=== PATIENT | male | born 1990 | race Two or more races ===

== ENCOUNTER 2021-01-15 01:38 | Inpatient (IN) | payer BC ==
[2021-01-15] MEDS ORDERED: Albuterol Sulfate 2.5 mg/3 ml Neb NEB PRN (02:49)
[2021-01-15] MEDS ORDERED: hydrALAZINE 20 MG/ML VIAL SLOW IVP PRN (02:49)
[2021-01-15 04:47] LABS: ALT (SGPT) 40 U/L (8-55); AST (SGOT) 47 U/L (5-34); Albumin 3.4 g/dL (3.5-5.0); Alkaline Phosphatase 52 U/L (40-110); Anion Gap 17 mmol/L (10-20); BUN (Urea Nitrogen) 8 mg/dL (8.9-20.6); Bilirubin, Total 0.3 mg/dL (0.2-1.2); Calc. Creatinine Clearance 289 mL/min (70-130); Calcium 8.3 mg/dL (7.8-10.44); Carbon Dioxide 16 mmol/L (22-29); Chloride 106 mmol/L (98-107); Globulin 3.8 g/dL (2.4-3.5); Glucose 150 mg/dL (70-105); Potassium 3.8 mmol/L (3.5-5.1); Protein, Total 7.2 g/dL (6.0-8.3); Sodium 135 mmol/L (136-145)
[2021-01-15 05:21] LABS: #Lymphocytes 0.5 thou/uL (1.20-3.40); #Monocytes 0.2 thou/uL (0.11-0.59); #Neutrophils 4.1 thou/uL (1.40-6.50); %Basophils 0.2 % (0.0-1.0); %Eosinophils 0.1 % (0.0-10.0); %Lymphocytes 10.4 % (21.0-51.0); %Monocytes 4.8 % (0.0-10.0); %Neutrophils 84.6 % (42.0-75.0); Hemoglobin 13.8 g/dL (14.0-18.0); Mean Corpuscular HGB CONC 32.6 g/dL (32.0-36.0); Mean Corpuscular Hemoglobin 29.3 pg (27.0-31.0); Mean Corpuscular Volume 89.8 fL (78.0-98.0); Mean Platelet Volume 8.9 fL (7.4-10.4); Platelet Count 107 thou/uL (130-400); Platelet Morphology Comment Appears Decreased; RBC Distribution Width 12.9 % (11.5-14.5); Red Blood Cell (RBC) Count 4.72 mill/uL (4.70-6.10); White Blood Cell (WBC) Count 4.8 thou/uL (4.8-10.8)
[2021-01-15] MEDS: Benzonatate 100 MG CAP PO PRN ×2 (06:16→16:39)
[2021-01-15] MEDS: Acetaminophen 325 MG TAB PO PRN ×3 (06:16→19:55)
[2021-01-15] MEDS: Albuterol 200 PUFF (6.7GM INHALER) INH PRN ×2 (06:19→16:55)
[2021-01-15] MEDS: Cholecalciferol 1,000 UNITS (25 MCG) TAB PO SCH (08:29)
[2021-01-15] MEDS: Famotidine 20 MG TAB PO SCH ×2 (08:29→19:55)
[2021-01-15] MEDS: Zinc Sulfate 220 MG CAP PO SCH (08:29)
[2021-01-15] MEDS: Ascorbic Acid 500 mg Chewable Tablet PO SCH (08:29)
[2021-01-15] MEDS: Enoxaparin Sodium 40 MG/0.4 ML SYRINGE SC SCH ×2 (08:29→19:54)
[2021-01-15] MEDS ORDERED: Dexamethasone 10 MG/ML VIAL SLOW IVP SCH (09:00)
[2021-01-15] MEDS ORDERED: REMDESIVIR 200 MG in Sodium Chloride 0.9% 250 ML 210 ML IV SCH (10:00)
[2021-01-15] MEDS: Dexamethasone 4 mg/ml Vial SLOW IVP SCH (10:04)
[2021-01-15] MEDS: Ondansetron PF 4 MG/2 ML Vial IVP PRN (16:42)
[2021-01-16 07:25] LABS: #Lymphocytes 0.8 thou/uL (1.20-3.40); #Monocytes 0.6 thou/uL (0.11-0.59); #Neutrophils 6.3 thou/uL (1.40-6.50); %Basophils 0.2 % (0.0-1.0); %Lymphocytes 10.6 % (21.0-51.0); %Monocytes 7.3 % (0.0-10.0); %Neutrophils 81.9 % (42.0-75.0); Hemoglobin 14.4 g/dL (14.0-18.0); Mean Corpuscular HGB CONC 31.4 g/dL (32.0-36.0); Mean Corpuscular Hemoglobin 28.1 pg (27.0-31.0); Mean Corpuscular Volume 89.4 fL (78.0-98.0); Mean Platelet Volume 8.5 fL (7.4-10.4); Platelet Count 144 thou/uL (130-400); RBC Distribution Width 13.1 % (11.5-14.5); Red Blood Cell (RBC) Count 5.12 mill/uL (4.70-6.10); White Blood Cell (WBC) Count 7.7 thou/uL (4.8-10.8)
[2021-01-16 07:31] LABS: ALT (SGPT) 38 U/L (8-55); AST (SGOT) 42 U/L (5-34); Albumin 3.4 g/dL (3.5-5.0); Alkaline Phosphatase 52 U/L (40-110); Anion Gap 14 mmol/L (10-20); BUN (Urea Nitrogen) 8 mg/dL (8.9-20.6); Bilirubin, Total 0.4 mg/dL (0.2-1.2); Calc. Creatinine Clearance 299 mL/min (70-130); Calcium 8.6 mg/dL (7.8-10.44); Carbon Dioxide 24 mmol/L (22-29); Chloride 105 mmol/L (98-107); Globulin 3.6 g/dL (2.4-3.5); Glucose 174 mg/dL (70-105); Potassium 3.8 mmol/L (3.5-5.1); Sodium 139 mmol/L (136-145)
[2021-01-16] MEDS: Famotidine 20 MG TAB PO SCH ×2 (08:11→20:49)
[2021-01-16] MEDS: Zinc Sulfate 220 MG CAP PO SCH (08:11)
[2021-01-16] MEDS: Cholecalciferol 1,000 UNITS (25 MCG) TAB PO SCH (08:11)
[2021-01-16] MEDS: Ascorbic Acid 500 mg Chewable Tablet PO SCH (08:11)
[2021-01-16] MEDS: Dexamethasone 4 mg/ml Vial SLOW IVP SCH (08:12)
[2021-01-16] MEDS: Enoxaparin Sodium 40 MG/0.4 ML SYRINGE SC SCH ×2 (08:12→20:49)
[2021-01-16] MEDS: REMDESIVIR 100 MG in Sodium Chloride 0.9% 250 ML 230 ML IV SCH (08:13)
[2021-01-16] MEDS: Albuterol 200 PUFF (6.7GM INHALER) INH PRN ×2 (08:25→12:00)
[2021-01-16] MEDS: Benzonatate 100 MG CAP PO PRN ×2 (11:12→20:49)
[2021-01-16] MEDS: Acetaminophen 325 MG TAB PO PRN ×2 (11:15→20:58)
[2021-01-17] MEDS: Ondansetron PF 4 MG/2 ML Vial IVP PRN (03:17)
[2021-01-17] MEDS ORDERED: Metoclopramide HCl 10 MG/2 ML VIAL IVP PRN (04:16)
[2021-01-17 07:05] LABS: #Basophils 0.1 thou/uL (0.0-0.2); #Lymphocytes 0.8 thou/uL (1.20-3.40); #Monocytes 0.9 thou/uL (0.11-0.59); #Neutrophils 7.8 thou/uL (1.40-6.50); %Basophils 1.3 % (0.0-1.0); %Eosinophils 0.1 % (0.0-10.0); %Lymphocytes 8.3 % (21.0-51.0); %Monocytes 9.2 % (0.0-10.0); Hemoglobin 16.4 g/dL (14.0-18.0); Mean Corpuscular HGB CONC 32.5 g/dL (32.0-36.0); Mean Corpuscular Hemoglobin 29.3 pg (27.0-31.0); Mean Corpuscular Volume 90.2 fL (78.0-98.0); Mean Platelet Volume 8.6 fL (7.4-10.4); Platelet Count 182 thou/uL (130-400); RBC Distribution Width 13.1 % (11.5-14.5); Red Blood Cell (RBC) Count 5.58 mill/uL (4.70-6.10); White Blood Cell (WBC) Count 9.7 thou/uL (4.8-10.8)
[2021-01-17] MEDS ORDERED: ALPRAZolam 0.5 MG TAB PO PRN (09:26)
[2021-01-17] MEDS: REMDESIVIR 100 MG in Sodium Chloride 0.9% 250 ML 230 ML IV SCH (09:47)
[2021-01-17] MEDS: Ascorbic Acid 500 mg Chewable Tablet PO SCH (09:48)
[2021-01-17] MEDS: Cholecalciferol 1,000 UNITS (25 MCG) TAB PO SCH (09:48)
[2021-01-17] MEDS: Enoxaparin Sodium 40 MG/0.4 ML SYRINGE SC SCH ×2 (09:48→20:20)
[2021-01-17] MEDS: Dexamethasone 4 mg/ml Vial SLOW IVP SCH (09:49)
[2021-01-17] MEDS: Zinc Sulfate 220 MG CAP PO SCH (09:49)
[2021-01-17] MEDS: Famotidine 20 MG TAB PO SCH ×2 (09:49→20:20)
[2021-01-17] MEDS: Benzonatate 100 MG CAP PO PRN ×2 (09:52→14:44)
[2021-01-17] MEDS: Acetaminophen 325 MG TAB PO PRN (09:52)
[2021-01-17 10:03] LABS: ALT (SGPT) 55 U/L (8-55); AST (SGOT) 61 U/L (5-34); Albumin 3.8 g/dL (3.5-5.0); Alkaline Phosphatase 61 U/L (40-110); Anion Gap 14 mmol/L (10-20); BUN (Urea Nitrogen) 13 mg/dL (8.9-20.6); Bilirubin, Total 0.9 mg/dL (0.2-1.2); Calc. Creatinine Clearance 263 mL/min (70-130); Carbon Dioxide 25 mmol/L (22-29); Chloride 104 mmol/L (98-107); Glucose 195 mg/dL (70-105); Potassium 3.7 mmol/L (3.5-5.1); Protein, Total 7.8 g/dL (6.0-8.3); Sodium 139 mmol/L (136-145)
[2021-01-17] MEDS: Albuterol 200 PUFF (6.7GM INHALER) INH PRN ×2 (14:44→17:54)
[2021-01-17] MEDS ORDERED: guaiFENesin/Codeine 200 mg/20 mg 10 ml Cup PO SCH (17:34)
[2021-01-17] MEDS ORDERED: Loratadine 10 MG TAB PO SCH (17:35)
[2021-01-17] MEDS: Benzonatate 100 MG CAP PO SCH (20:19)
[2021-01-17] MEDS ORDERED: guaiFENesin/Codeine 200 mg/20 mg 10 ml Cup PO PRN (21:34)
[2021-01-17] MEDS: Fluticasone Propionate Nasal Spray 16 gm Bottle NASAL SCH (21:45)
[2021-01-17] MEDS: hydrALAZINE 20 MG/ML VIAL SLOW IVP PRN (22:25)
[2021-01-18 04:33] LABS: ALT (SGPT) 90 U/L (8-55); AST (SGOT) 90 U/L (5-34); Albumin 3.4 g/dL (3.5-5.0); Alkaline Phosphatase 60 U/L (40-110); Anion Gap 11 mmol/L (10-20); BUN (Urea Nitrogen) 15 mg/dL (8.9-20.6); Bilirubin, Total 0.9 mg/dL (0.2-1.2); CRP (Inflammatory) 3.14 mg/dL (= or < 0.5); Calc. Creatinine Clearance 271 mL/min (70-130); Calcium 8.7 mg/dL (7.8-10.44); Carbon Dioxide 29 mmol/L (22-29); Chloride 103 mmol/L (98-107); Glucose 191 mg/dL (70-105); Potassium 3.5 mmol/L (3.5-5.1); Protein, Total 7.4 g/dL (6.0-8.3); Sodium 139 mmol/L (136-145)
[2021-01-18] MEDS: Ascorbic Acid 500 mg Chewable Tablet PO SCH (08:20)
[2021-01-18] MEDS: Benzonatate 100 MG CAP PO SCH ×3 (08:20→19:56)
[2021-01-18] MEDS: Enoxaparin Sodium 40 MG/0.4 ML SYRINGE SC SCH ×2 (08:21→19:54)
[2021-01-18] MEDS: Famotidine 20 MG TAB PO SCH ×2 (08:21→19:56)
[2021-01-18] MEDS: Zinc Sulfate 220 MG CAP PO SCH (08:21)
[2021-01-18] MEDS: Dexamethasone 4 mg/ml Vial SLOW IVP SCH ×2 (08:21→19:56)
[2021-01-18] MEDS: Fluticasone Propionate Nasal Spray 16 gm Bottle NASAL SCH ×2 (08:21→21:07)
[2021-01-18] MEDS: Cholecalciferol 1,000 UNITS (25 MCG) TAB PO SCH (08:21)
[2021-01-18] MEDS: REMDESIVIR 100 MG in Sodium Chloride 0.9% 250 ML 230 ML IV SCH (08:47)
[2021-01-18] MEDS: Mometasone 200 MCG/Formoterol 5 MCG 120 PUFF INHALER INH SCH (18:23)
[2021-01-18] MEDS: hydrALAZINE 20 MG/ML VIAL SLOW IVP PRN (19:54)
[2021-01-18] MEDS: ALPRAZolam 0.25 MG TAB PO PRN (19:55)
[2021-01-18] MEDS: Ondansetron PF 4 MG/2 ML Vial IVP PRN (21:07)
[2021-01-19 04:34] LABS: ALT (SGPT) 119 U/L (8-55); AST (SGOT) 80 U/L (5-34); Albumin 3.4 g/dL (3.5-5.0); Alkaline Phosphatase 57 U/L (40-110); Anion Gap 15 mmol/L (10-20); BUN (Urea Nitrogen) 13 mg/dL (8.9-20.6); Bilirubin, Total 1.2 mg/dL (0.2-1.2); CRP (Inflammatory) 5.09 mg/dL (= or < 0.5); Calc. Creatinine Clearance 286 mL/min (70-130); Calcium 8.7 mg/dL (7.8-10.44); Carbon Dioxide 25 mmol/L (22-29); Chloride 103 mmol/L (98-107); Globulin 3.7 g/dL (2.4-3.5); Glucose 243 mg/dL (70-105); Potassium 3.8 mmol/L (3.5-5.1); Protein, Total 7.1 g/dL (6.0-8.3); Sodium 139 mmol/L (136-145)
[2021-01-19] MEDS: REMDESIVIR 100 MG in Sodium Chloride 0.9% 250 ML 230 ML IV SCH (07:29)
[2021-01-19] MEDS: Mometasone 200 MCG/Formoterol 5 MCG 120 PUFF INHALER INH SCH ×2 (07:30→22:39)
[2021-01-19] MEDS: Famotidine 20 MG TAB PO SCH ×2 (07:56→20:26)
[2021-01-19] MEDS: Ascorbic Acid 500 mg Chewable Tablet PO SCH (07:56)
[2021-01-19] MEDS: Benzonatate 100 MG CAP PO SCH ×3 (07:56→20:26)
[2021-01-19] MEDS: Zinc Sulfate 220 MG CAP PO SCH (07:56)
[2021-01-19] MEDS: Dexamethasone 4 mg/ml Vial SLOW IVP SCH ×2 (07:56→20:27)
[2021-01-19] MEDS: Fluticasone Propionate Nasal Spray 16 gm Bottle NASAL SCH ×2 (07:57→20:30)
[2021-01-19] MEDS: Cholecalciferol 1,000 UNITS (25 MCG) TAB PO SCH (07:57)
[2021-01-19] MEDS: Enoxaparin Sodium 40 MG/0.4 ML SYRINGE SC SCH ×2 (07:57→20:25)
[2021-01-19] MEDS: BARICITINIB 2 MG TAB PO SCH (20:26)
[2021-01-19] MEDS: ALPRAZolam 0.25 MG TAB PO PRN (20:27)
[2021-01-19] MEDS: hydrALAZINE 20 MG/ML VIAL SLOW IVP PRN (22:44)
[2021-01-20 04:27] LABS: ALT (SGPT) 150 U/L (8-55); AST (SGOT) 71 U/L (5-34); Albumin 3.3 g/dL (3.5-5.0); Alkaline Phosphatase 56 U/L (40-110); Anion Gap 12 mmol/L (10-20); BUN (Urea Nitrogen) 18 mg/dL (8.9-20.6); Bilirubin, Total 0.9 mg/dL (0.2-1.2); CRP (Inflammatory) 3.76 mg/dL (= or < 0.5); Calc. Creatinine Clearance 265 mL/min (70-130); Calcium 8.8 mg/dL (7.8-10.44); Carbon Dioxide 27 mmol/L (22-29); Chloride 103 mmol/L (98-107); Globulin 3.8 g/dL (2.4-3.5); Glucose 255 mg/dL (70-105); Protein, Total 7.1 g/dL (6.0-8.3); Sodium 138 mmol/L (136-145)
[2021-01-20] MEDS: Dexamethasone 4 mg/ml Vial SLOW IVP SCH ×2 (09:07→21:15)
[2021-01-20] MEDS: Zinc Sulfate 220 MG CAP PO SCH (09:09)
[2021-01-20] MEDS: Benzonatate 100 MG CAP PO SCH ×3 (09:09→21:14)
[2021-01-20] MEDS: Famotidine 20 MG TAB PO SCH ×2 (09:09→21:14)
[2021-01-20] MEDS: Ascorbic Acid 500 mg Chewable Tablet PO SCH (09:09)
[2021-01-20] MEDS: Cholecalciferol 1,000 UNITS (25 MCG) TAB PO SCH (09:10)
[2021-01-20] MEDS: Enoxaparin Sodium 40 MG/0.4 ML SYRINGE SC SCH ×2 (09:10→21:14)
[2021-01-20] MEDS: Mometasone 200 MCG/Formoterol 5 MCG 120 PUFF INHALER INH SCH ×2 (09:15→23:16)
[2021-01-20] MEDS: Fluticasone Propionate Nasal Spray 16 gm Bottle NASAL SCH ×2 (09:15→21:22)
[2021-01-20] MEDS: BARICITINIB 2 MG TAB PO SCH (21:14)
[2021-01-21 04:18] LABS: ALT (SGPT) 143 U/L (8-55); AST (SGOT) 57 U/L (5-34); Alkaline Phosphatase 53 U/L (40-110); Anion Gap 11 mmol/L (10-20); BUN (Urea Nitrogen) 20 mg/dL (8.9-20.6); Bilirubin, Total 0.9 mg/dL (0.2-1.2); CRP (Inflammatory) 1.79 mg/dL (= or < 0.5); Calc. Creatinine Clearance 274 mL/min (70-130); Calcium 8.5 mg/dL (7.8-10.44); Carbon Dioxide 27 mmol/L (22-29); Chloride 103 mmol/L (98-107); Glucose 251 mg/dL (70-105); Potassium 4.4 mmol/L (3.5-5.1); Sodium 137 mmol/L (136-145)
[2021-01-21] MEDS ORDERED: Amlodipine 5 MG TAB PO SCH (09:00)
[2021-01-21] MEDS: Ascorbic Acid 500 mg Chewable Tablet PO SCH (10:15)
[2021-01-21] MEDS: Enoxaparin Sodium 40 MG/0.4 ML SYRINGE SC SCH ×2 (10:15→20:51)
[2021-01-21] MEDS: Dexamethasone 4 mg/ml Vial SLOW IVP SCH ×2 (10:15→20:51)
[2021-01-21] MEDS: Benzonatate 100 MG CAP PO SCH ×3 (10:16→20:51)
[2021-01-21] MEDS: Zinc Sulfate 220 MG CAP PO SCH (10:16)
[2021-01-21] MEDS: Fluticasone Propionate Nasal Spray 16 gm Bottle NASAL SCH ×2 (10:16→20:54)
[2021-01-21] MEDS: Famotidine 20 MG TAB PO SCH ×2 (10:16→20:51)
[2021-01-21] MEDS: Cholecalciferol 1,000 UNITS (25 MCG) TAB PO SCH (10:16)
[2021-01-21] MEDS: Mometasone 200 MCG/Formoterol 5 MCG 120 PUFF INHALER INH SCH ×2 (10:17→20:01)
[2021-01-21] MEDS: BARICITINIB 2 MG TAB PO SCH (20:51)
[2021-01-21] MEDS: Amlodipine 5 MG TAB PO SCH (22:47)
[2021-01-22 04:25] LABS: ALT (SGPT) 152 U/L (8-55); AST (SGOT) 59 U/L (5-34); Albumin 3.2 g/dL (3.5-5.0); Alkaline Phosphatase 52 U/L (40-110); Anion Gap 14 mmol/L (10-20); BUN (Urea Nitrogen) 19 mg/dL (8.9-20.6); Bilirubin, Total 0.9 mg/dL (0.2-1.2); CRP (Inflammatory) 1.07 mg/dL (= or < 0.5); Calc. Creatinine Clearance 267 mL/min (70-130); Calcium 8.8 mg/dL (7.8-10.44); Carbon Dioxide 24 mmol/L (22-29); Chloride 103 mmol/L (98-107); Globulin 4.3 g/dL (2.4-3.5); Glucose 230 mg/dL (70-105); Potassium 4.7 mmol/L (3.5-5.1); Protein, Total 7.5 g/dL (6.0-8.3); Sodium 136 mmol/L (136-145)
[2021-01-22] MEDS: Mometasone 200 MCG/Formoterol 5 MCG 120 PUFF INHALER INH SCH (06:42)
[2021-01-22] MEDS: Dexamethasone 4 mg/ml Vial SLOW IVP SCH ×2 (08:18→22:47)
[2021-01-22] MEDS: Enoxaparin Sodium 40 MG/0.4 ML SYRINGE SC SCH ×2 (08:18→20:38)
[2021-01-22] MEDS: Zinc Sulfate 220 MG CAP PO SCH (08:19)
[2021-01-22] MEDS: Cholecalciferol 1,000 UNITS (25 MCG) TAB PO SCH (08:19)
[2021-01-22] MEDS: Benzonatate 100 MG CAP PO SCH ×3 (08:19→20:35)
[2021-01-22] MEDS: Fluticasone Propionate Nasal Spray 16 gm Bottle NASAL SCH ×2 (08:19→20:38)
[2021-01-22] MEDS: Amlodipine 5 MG TAB PO SCH ×2 (08:19→20:34)
[2021-01-22] MEDS: Famotidine 20 MG TAB PO SCH ×2 (08:19→20:38)
[2021-01-22] MEDS: Ascorbic Acid 500 mg Chewable Tablet PO SCH (08:19)
[2021-01-22] MEDS: BARICITINIB 2 MG TAB PO SCH (20:35)
[2021-01-23] MEDS: Famotidine 20 MG TAB PO SCH ×2 (10:10→20:19)
[2021-01-23] MEDS: Benzonatate 100 MG CAP PO SCH ×3 (10:10→20:19)
[2021-01-23] MEDS: Enoxaparin Sodium 40 MG/0.4 ML SYRINGE SC SCH ×2 (10:10→20:19)
[2021-01-23] MEDS: Zinc Sulfate 220 MG CAP PO SCH (10:10)
[2021-01-23] MEDS: Dexamethasone 4 mg/ml Vial SLOW IVP SCH ×2 (10:11→20:17)
[2021-01-23] MEDS: Amlodipine 5 MG TAB PO SCH ×2 (10:11→20:18)
[2021-01-23] MEDS: Ascorbic Acid 500 mg Chewable Tablet PO SCH (10:11)
[2021-01-23] MEDS: Cholecalciferol 1,000 UNITS (25 MCG) TAB PO SCH (10:12)
[2021-01-23] MEDS: Acetaminophen 325 MG TAB PO PRN (10:35)
[2021-01-23] MEDS: Fluticasone Propionate Nasal Spray 16 gm Bottle NASAL SCH ×2 (10:35→20:33)
[2021-01-23] MEDS: Mometasone 200 MCG/Formoterol 5 MCG 120 PUFF INHALER INH SCH ×3 (11:37→18:10)
[2021-01-23] MEDS: BARICITINIB 2 MG TAB PO SCH (20:18)
[2021-01-24 06:16] VITALS: BMI 55.4
[2021-01-24 07:10] LABS: ALT (SGPT) 198 U/L (8-55); AST (SGOT) 50 U/L (5-34); Albumin 3.5 g/dL (3.5-5.0); Alkaline Phosphatase 53 U/L (40-110); Anion Gap 11 mmol/L (10-20); BUN (Urea Nitrogen) 21 mg/dL (8.9-20.6); CRP (Inflammatory) Less than 0.50 mg/dL (= or < 0.5); Calc. Creatinine Clearance 236 mL/min (70-130); Calcium 9.1 mg/dL (7.8-10.44); Carbon Dioxide 28 mmol/L (22-29); Chloride 102 mmol/L (98-107); Globulin 4.1 g/dL (2.4-3.5); Glucose 229 mg/dL (70-105); Potassium 4.5 mmol/L (3.5-5.1); Protein, Total 7.6 g/dL (6.0-8.3); Sodium 136 mmol/L (136-145)
[2021-01-24] MEDS: Mometasone 200 MCG/Formoterol 5 MCG 120 PUFF INHALER INH SCH ×2 (07:57→18:33)
[2021-01-24] MEDS: Ascorbic Acid 500 mg Chewable Tablet PO SCH (08:51)
[2021-01-24] MEDS: Amlodipine 5 MG TAB PO SCH ×2 (08:51→20:42)
[2021-01-24] MEDS: Famotidine 20 MG TAB PO SCH ×2 (08:52→20:42)
[2021-01-24] MEDS: Enoxaparin Sodium 40 MG/0.4 ML SYRINGE SC SCH ×2 (08:52→20:42)
[2021-01-24] MEDS: Zinc Sulfate 220 MG CAP PO SCH (08:52)
[2021-01-24] MEDS: Benzonatate 100 MG CAP PO SCH ×3 (08:52→20:40)
[2021-01-24] MEDS: Dexamethasone 4 mg/ml Vial SLOW IVP SCH ×2 (08:52→20:43)
[2021-01-24] MEDS: Cholecalciferol 1,000 UNITS (25 MCG) TAB PO SCH (08:52)
[2021-01-24] MEDS: Fluticasone Propionate Nasal Spray 16 gm Bottle NASAL SCH ×2 (08:53→20:44)
[2021-01-24 17:57] LABS: Hemoglobin A1c 6.5 % (4.0-6.0)
[2021-01-24] MEDS: BARICITINIB 2 MG TAB PO SCH (20:40)
[2021-01-25] MEDS: Mometasone 200 MCG/Formoterol 5 MCG 120 PUFF INHALER INH SCH ×2 (08:19→19:27)
[2021-01-25] MEDS: Zinc Sulfate 220 MG CAP PO SCH (08:58)
[2021-01-25] MEDS: Dexamethasone 4 mg/ml Vial SLOW IVP SCH ×2 (08:59→21:24)
[2021-01-25] MEDS: Famotidine 20 MG TAB PO SCH ×2 (08:59→21:07)
[2021-01-25] MEDS: Benzonatate 100 MG CAP PO SCH ×3 (08:59→21:07)
[2021-01-25] MEDS: Amlodipine 5 MG TAB PO SCH ×2 (08:59→21:07)
[2021-01-25] MEDS: Ascorbic Acid 500 mg Chewable Tablet PO SCH (08:59)
[2021-01-25] MEDS: Cholecalciferol 1,000 UNITS (25 MCG) TAB PO SCH (08:59)
[2021-01-25] MEDS: Enoxaparin Sodium 40 MG/0.4 ML SYRINGE SC SCH ×2 (09:00→21:11)
[2021-01-25] MEDS: Fluticasone Propionate Nasal Spray 16 gm Bottle NASAL SCH ×2 (09:00→21:24)
[2021-01-25] MEDS: BARICITINIB 2 MG TAB PO SCH (21:06)
[2021-01-26] MEDS: Mometasone 200 MCG/Formoterol 5 MCG 120 PUFF INHALER INH SCH ×2 (07:26→19:23)
[2021-01-26] MEDS: Benzonatate 100 MG CAP PO SCH ×3 (09:41→21:28)
[2021-01-26] MEDS: Zinc Sulfate 220 MG CAP PO SCH (09:41)
[2021-01-26] MEDS: Ascorbic Acid 500 mg Chewable Tablet PO SCH (09:41)
[2021-01-26] MEDS: Cholecalciferol 1,000 UNITS (25 MCG) TAB PO SCH (09:41)
[2021-01-26] MEDS: Amlodipine 5 MG TAB PO SCH ×2 (09:41→21:29)
[2021-01-26] MEDS: Famotidine 20 MG TAB PO SCH ×2 (09:41→21:29)
[2021-01-26] MEDS: Dexamethasone 4 mg/ml Vial SLOW IVP SCH ×3 (09:42→21:30)
[2021-01-26] MEDS: Fluticasone Propionate Nasal Spray 16 gm Bottle NASAL SCH ×2 (09:43→21:00)
[2021-01-26] MEDS: Enoxaparin Sodium 40 MG/0.4 ML SYRINGE SC SCH ×2 (09:43→21:31)
[2021-01-26] MEDS: BARICITINIB 2 MG TAB PO SCH (21:29)
[2021-01-27] MEDS: Ascorbic Acid 500 mg Chewable Tablet PO SCH (09:05)
[2021-01-27] MEDS: Famotidine 20 MG TAB PO SCH ×2 (09:06→21:19)
[2021-01-27] MEDS: Cholecalciferol 1,000 UNITS (25 MCG) TAB PO SCH (09:06)
[2021-01-27] MEDS: Benzonatate 100 MG CAP PO SCH ×3 (09:06→21:22)
[2021-01-27] MEDS: Amlodipine 5 MG TAB PO SCH ×2 (09:06→21:19)
[2021-01-27] MEDS: Zinc Sulfate 220 MG CAP PO SCH (09:06)
[2021-01-27] MEDS: Enoxaparin Sodium 40 MG/0.4 ML SYRINGE SC SCH ×2 (09:07→21:21)
[2021-01-27] MEDS: Fluticasone Propionate Nasal Spray 16 gm Bottle NASAL SCH ×2 (09:08→21:22)
[2021-01-27] MEDS: Mometasone 200 MCG/Formoterol 5 MCG 120 PUFF INHALER INH SCH ×2 (11:18→18:57)
[2021-01-27] MEDS: BARICITINIB 2 MG TAB PO SCH (21:19)
[2021-01-27] MEDS: Doxycycline 100 MG CAP PO SCH (21:19)
[2021-01-28] MEDS: Mometasone 200 MCG/Formoterol 5 MCG 120 PUFF INHALER INH SCH ×2 (08:58→19:14)
[2021-01-28] MEDS: Doxycycline 100 MG CAP PO SCH ×2 (09:13→21:18)
[2021-01-28] MEDS: Dexamethasone 4 MG TAB PO SCH (09:13)
[2021-01-28] MEDS: Amlodipine 5 MG TAB PO SCH ×2 (09:13→21:18)
[2021-01-28] MEDS: Cholecalciferol 1,000 UNITS (25 MCG) TAB PO SCH (09:13)
[2021-01-28] MEDS: Zinc Sulfate 220 MG CAP PO SCH (09:13)
[2021-01-28] MEDS: Fluticasone Propionate Nasal Spray 16 gm Bottle NASAL SCH ×2 (09:14→21:27)
[2021-01-28] MEDS: Famotidine 20 MG TAB PO SCH ×2 (09:14→21:18)
[2021-01-28] MEDS: Enoxaparin Sodium 40 MG/0.4 ML SYRINGE SC SCH ×2 (09:14→21:19)
[2021-01-28] MEDS: Benzonatate 100 MG CAP PO SCH ×3 (09:14→21:18)
[2021-01-28] MEDS: Ascorbic Acid 500 mg Chewable Tablet PO SCH (09:14)
[2021-01-28 12:48] LABS: ALT (SGPT) 186 U/L (8-55); AST (SGOT) 57 U/L (5-34); Albumin 3.1 g/dL (3.5-5.0); Alkaline Phosphatase 49 U/L (40-110); Bilirubin, Direct 0.3 mg/dL (0.1-0.3); Protein, Total 6.4 g/dL (6.0-8.3)
[2021-01-28 19:03] LABS: #Lymphocytes 0.7 thou/uL (1.20-3.40); #Monocytes 0.3 thou/uL (0.11-0.59); #Neutrophils 9.4 thou/uL (1.40-6.50); %Eosinophils 0.4 % (0.0-10.0); %Lymphocytes 6.5 % (21.0-51.0); %Monocytes 3.1 % (0.0-10.0); Hemoglobin 17.8 g/dL (14.0-18.0); Mean Corpuscular HGB CONC 31.7 g/dL (32.0-36.0); Mean Corpuscular Hemoglobin 28.9 pg (27.0-31.0); Mean Corpuscular Volume 91.4 fL (78.0-98.0); Mean Platelet Volume 8.9 fL (7.4-10.4); Platelet Count 246 thou/uL (130-400); RBC Distribution Width 14.1 % (11.5-14.5); Red Blood Cell (RBC) Count 6.16 mill/uL (4.70-6.10); White Blood Cell (WBC) Count 10.4 thou/uL (4.8-10.8)
[2021-01-28 19:25] LABS: Anion Gap 15 mmol/L (10-20); BUN (Urea Nitrogen) 23 mg/dL (8.9-20.6); Calc. Creatinine Clearance 227 mL/min (70-130); Calcium 8.4 mg/dL (7.8-10.44); Carbon Dioxide 23 mmol/L (22-29); Chloride 104 mmol/L (98-107); Glucose 264 mg/dL (70-105); Magnesium 2.4 mg/dL (1.6-2.6); Potassium 4.5 mmol/L (3.5-5.1); Sodium 137 mmol/L (136-145)
[2021-01-28] MEDS: BARICITINIB 2 MG TAB PO SCH (21:18)
[2021-01-29] MEDS: Mometasone 200 MCG/Formoterol 5 MCG 120 PUFF INHALER INH SCH ×2 (05:34→21:30)
[2021-01-29] MEDS: Zinc Sulfate 220 MG CAP PO SCH (08:22)
[2021-01-29] MEDS: Dexamethasone 4 MG TAB PO SCH (08:22)
[2021-01-29] MEDS: Doxycycline 100 MG CAP PO SCH ×2 (08:22→21:30)
[2021-01-29] MEDS: Ascorbic Acid 500 mg Chewable Tablet PO SCH (08:23)
[2021-01-29] MEDS: Enoxaparin Sodium 40 MG/0.4 ML SYRINGE SC SCH ×2 (08:23→21:29)
[2021-01-29] MEDS: Famotidine 20 MG TAB PO SCH ×2 (08:23→21:29)
[2021-01-29] MEDS: Cholecalciferol 1,000 UNITS (25 MCG) TAB PO SCH (08:23)
[2021-01-29] MEDS: Amlodipine 5 MG TAB PO SCH ×2 (08:23→21:29)
[2021-01-29] MEDS: Benzonatate 100 MG CAP PO SCH ×3 (08:23→21:37)
[2021-01-29] MEDS: Fluticasone Propionate Nasal Spray 16 gm Bottle NASAL SCH ×2 (08:24→21:34)
[2021-01-29] MEDS: BARICITINIB 2 MG TAB PO SCH (21:29)
[2021-01-30] MEDS: Mometasone 200 MCG/Formoterol 5 MCG 120 PUFF INHALER INH SCH ×2 (06:07→18:40)
[2021-01-30] MEDS: Ascorbic Acid 500 mg Chewable Tablet PO SCH (08:42)
[2021-01-30] MEDS: Cholecalciferol 1,000 UNITS (25 MCG) TAB PO SCH (08:42)
[2021-01-30] MEDS: Zinc Sulfate 220 MG CAP PO SCH (08:42)
[2021-01-30] MEDS: Doxycycline 100 MG CAP PO SCH ×2 (08:42→21:16)
[2021-01-30] MEDS: Amlodipine 5 MG TAB PO SCH ×2 (08:43→21:16)
[2021-01-30] MEDS: Famotidine 20 MG TAB PO SCH ×2 (08:43→21:17)
[2021-01-30] MEDS: Fluticasone Propionate Nasal Spray 16 gm Bottle NASAL SCH ×2 (08:43→21:19)
[2021-01-30] MEDS: Dexamethasone 4 MG TAB PO SCH (08:43)
[2021-01-30] MEDS: Enoxaparin Sodium 40 MG/0.4 ML SYRINGE SC SCH ×2 (08:45→21:17)
[2021-01-30] MEDS: Benzonatate 100 MG CAP PO SCH ×3 (08:45→21:21)
[2021-01-30] MEDS: BARICITINIB 2 MG TAB PO SCH (21:16)
[2021-01-31] MEDS: Mometasone 200 MCG/Formoterol 5 MCG 120 PUFF INHALER INH SCH ×2 (05:49→17:09)
[2021-01-31 08:19] LABS: #Basophils 0.1 thou/uL (0.0-0.2); #Eosinphils 0.1 thou/uL (0.0-0.7); #Lymphocytes 2.6 thou/uL (1.20-3.40); #Monocytes 0.7 thou/uL (0.11-0.59); #Neutrophils 4.8 thou/uL (1.40-6.50); %Basophils 0.8 % (0.0-1.0); %Lymphocytes 31.4 % (21.0-51.0); %Neutrophils 57.8 % (42.0-75.0); Hemoglobin 16.3 g/dL (14.0-18.0); Mean Corpuscular HGB CONC 30.7 g/dL (32.0-36.0); Mean Corpuscular Hemoglobin 28.1 pg (27.0-31.0); Mean Corpuscular Volume 91.5 fL (78.0-98.0); Mean Platelet Volume 8.5 fL (7.4-10.4); Platelet Count 238 thou/uL (130-400); RBC Distribution Width 14.1 % (11.5-14.5); Red Blood Cell (RBC) Count 5.78 mill/uL (4.70-6.10); White Blood Cell (WBC) Count 8.3 thou/uL (4.8-10.8)
[2021-01-31 08:42] LABS: ALT (SGPT) 192 U/L (8-55); AST (SGOT) 48 U/L (5-34); Albumin 3.3 g/dL (3.5-5.0); Alkaline Phosphatase 50 U/L (40-110); Anion Gap 14 mmol/L (10-20); BUN (Urea Nitrogen) 21 mg/dL (8.9-20.6); Bilirubin, Total 1.2 mg/dL (0.2-1.2); Calc. Creatinine Clearance 291 mL/min (70-130); Calcium 8.7 mg/dL (7.8-10.44); Carbon Dioxide 25 mmol/L (22-29); Chloride 106 mmol/L (98-107); Globulin 2.9 g/dL (2.4-3.5); Glucose 93 mg/dL (70-105); Potassium 4.5 mmol/L (3.5-5.1); Protein, Total 6.2 g/dL (6.0-8.3); Sodium 140 mmol/L (136-145)
[2021-01-31] MEDS: Doxycycline 100 MG CAP PO SCH ×2 (08:58→21:27)
[2021-01-31] MEDS: Dexamethasone 4 MG TAB PO SCH (08:59)
[2021-01-31] MEDS: Ascorbic Acid 500 mg Chewable Tablet PO SCH (08:59)
[2021-01-31] MEDS: Amlodipine 5 MG TAB PO SCH ×2 (08:59→21:26)
[2021-01-31] MEDS: Famotidine 20 MG TAB PO SCH ×2 (08:59→21:27)
[2021-01-31] MEDS: Cholecalciferol 1,000 UNITS (25 MCG) TAB PO SCH (08:59)
[2021-01-31] MEDS: Zinc Sulfate 220 MG CAP PO SCH (08:59)
[2021-01-31] MEDS: Benzonatate 100 MG CAP PO SCH ×3 (10:56→21:28)
[2021-01-31] MEDS: Enoxaparin Sodium 60 MG/0.6 ML SYRINGE SC SCH ×3 (10:57→23:29)
[2021-01-31] MEDS: Fluticasone Propionate Nasal Spray 16 gm Bottle NASAL SCH ×2 (10:58→21:27)
[2021-01-31] MEDS: Colchicine 0.6 MG TAB PO SCH (21:26)
[2021-01-31] MEDS: BARICITINIB 2 MG TAB PO SCH (21:27)
[2021-01-31 21:31] VITALS: TEMP 97.6
[2021-01-31] MEDS: Enoxaparin Sodium 40 MG/0.4 ML SYRINGE SC SCH (23:28)
[2021-02-01] MEDS: Mometasone 200 MCG/Formoterol 5 MCG 120 PUFF INHALER INH SCH (05:10)
[2021-02-01] MEDS: Ascorbic Acid 500 mg Chewable Tablet PO SCH (08:31)
[2021-02-01] MEDS: Doxycycline 100 MG CAP PO SCH (08:31)
[2021-02-01] MEDS: Dexamethasone 4 MG TAB PO SCH (08:31)
[2021-02-01] MEDS: Colchicine 0.6 MG TAB PO SCH (08:32)
[2021-02-01] MEDS: Famotidine 20 MG TAB PO SCH (08:32)
[2021-02-01] MEDS: Cholecalciferol 1,000 UNITS (25 MCG) TAB PO SCH (08:32)
[2021-02-01] MEDS: Amlodipine 5 MG TAB PO SCH (08:32)
[2021-02-01] MEDS: Zinc Sulfate 220 MG CAP PO SCH (08:32)
[2021-02-01] MEDS: Fluticasone Propionate Nasal Spray 16 gm Bottle NASAL SCH (08:32)
[2021-02-01] MEDS: Benzonatate 100 MG CAP PO SCH ×2 (08:32→14:47)
[2021-02-01 08:48] VITALS: BP 141/86
[2021-02-01] MEDS ORDERED: Enoxaparin Sodium 40 MG/0.4 ML SYRINGE SC SCH (09:00)
== END 2021-02-01 15:45 | disposition home or self-care (01) | DRG 177 ==
LOC: T4-B 02:08 → IMCU/EMU 01-17 22:18 → T4-A 01-22 18:36
PROVIDERS: ADMIT Internal Medicine; ATTEND Hospitalist
PROC: 8E0ZXY6 Isolation (ICD-10-PCS; principal; 2021-01-15)
PROC: XW0DXM6 Introduction of Baricitinib into Mouth and Pharynx, External Approach, New Technology Group 6 (ICD-10-PCS; 2021-01-15)
PROC: XW033E5 Introduction of Remdesivir Anti-infective into Peripheral Vein, Percutaneous Approach, New Technology Group 5 (ICD-10-PCS; 2021-01-15)
PROC: 5A09457 Assistance with Respiratory Ventilation, 24-96 Consecutive Hours, Continuous Positive Airway Pressure (ICD-10-PCS; 2021-01-17)
DX: U07.1 COVID-19 (principal); J12.82 Pneumonia due to coronavirus disease 2019; J96.01 Acute respiratory failure with hypoxia; Z68.44 Body mass index [BMI] 60.0-69.9, adult; E66.01 Morbid (severe) obesity due to excess calories; D69.6 Thrombocytopenia, unspecified; F41.9 Anxiety disorder, unspecified; I10 Essential (primary) hypertension; R74.01 Elevation of levels of liver transaminase levels; R73.9 Hyperglycemia, unspecified; T38.0X5A Adverse effect of glucocorticoids and synthetic analogues, initial encounter
CPT/HCPCS: 36415; 71045; 80048; 80053; 80076; 82728; 83036; 83735; 85025; 85379; 86140; 93005; 93010; 94660; 94664; J0360; J1100; J1650; J2405; J2765; J3490; J7050; J8540

== ENCOUNTER 2021-03-01 08:22 | Outpatient (CLI) | payer BC | END 2021-03-01 08:23 | disposition home or self-care (01) | LOC: RAD 08:22 | PROVIDERS: ATTEND Internal Medicine Pulmonary Disease | DX: R06.00 Dyspnea, unspecified (principal); R91.8 Other nonspecific abnormal finding of lung field | CPT/HCPCS: 71046 ==

== ENCOUNTER 2022-02-05 14:34 | Emergency (ER) | payer SELFPAY ==
[~2022-02-05 14:34] MED LIST: Iopamidol-370 76% 500 ML 1 ML ONE
[2022-02-05 14:53] LABS: #Basophils 0.1 thou/uL (0.0-0.2); #Eosinphils 0.5 thou/uL (0.0-0.7); #Lymphocytes 3.2 thou/uL (1.20-3.40); #Monocytes 0.6 thou/uL (0.11-0.59); #Neutrophils 5.2 thou/uL (1.40-6.50); %Basophils 0.7 % (0.0-1.0); %Eosinophils 4.8 % (0.0-10.0); %Lymphocytes 33.3 % (21.0-51.0); %Monocytes 6.7 % (0.0-10.0); %Neutrophils 54.6 % (42.0-75.0); Hemoglobin 15.4 g/dL (14.0-18.0); Mean Corpuscular Hemoglobin 30.2 pg (27.0-31.0); Mean Corpuscular Volume 91.3 fL (78.0-98.0); Mean Platelet Volume 8.9 fL (7.4-10.4); Platelet Count 190 thou/uL (130-400); RBC Distribution Width 12.7 % (11.5-14.5); White Blood Cell (WBC) Count 9.5 thou/uL (4.8-10.8)
[2022-02-05 14:59] LABS: Prothrombin Time 11.9 sec (12.0-14.7)
[2022-02-05 15:03] LABS: PTT 20.7 sec (22.9-36.1)
[2022-02-05 15:07] LABS: INR-International Normal Ratio 0.9
[2022-02-05 15:22] LABS: ALT (SGPT) 19 U/L (8-55); AST (SGOT) 19 U/L (5-34); Albumin 3.8 g/dL (3.5-5.0); Alkaline Phosphatase 67 U/L (40-110); Anion Gap 16 mmol/L (10-20); BUN (Urea Nitrogen) 16 mg/dL (8.9-20.6); Bilirubin, Total 0.3 mg/dL (0.2-1.2); CK (CPK) 123 U/L (30-200); Calc. Creatinine Clearance 0 mL/min (70-130); Calcium 9.2 mg/dL (7.8-10.44); Carbon Dioxide 20 mmol/L (22-29); Chloride 107 mmol/L (98-107); Estimated GFR 113; Globulin 3.5 g/dL (2.4-3.5); Glucose 101 mg/dL (70-105); Potassium 3.8 mmol/L (3.5-5.1); Protein, Total 7.3 g/dL (6.0-8.3); Sodium 139 mmol/L (136-145)
[2022-02-05] MEDS ORDERED: Acetaminophen 500 MG TAB ONE (15:30)
[2022-02-05] MEDS ORDERED: diphenhydrAMINE 50 MG/ML VIAL ONE (16:52)
[2022-02-05] MEDS ORDERED: Metoclopramide HCl 10 MG/2 ML VIAL ONE (16:52)
== END 2022-02-05 18:30 | disposition home or self-care (01) ==
LOC: ERS 14:34
DX: R55 Syncope and collapse (principal); R53.1 Weakness; R51.9 Headache, unspecified; R41.82 Altered mental status, unspecified
CPT/HCPCS: 70450; 70496; 70498; 80053; 82550; 84484; 85025; 85610; 85730; 93005; 96365; 96375; J1200; J2765; Q9967